=== PATIENT | male | born 1975 | race American Indian/Alaskan Native ===

== ENCOUNTER 2022-06-11 19:28 | Emergency (ER) | payer BC ==
[2022-06-11 19:54] VITALS: BP 138/95; PULSE 94; RESP 16; TEMP 97.6; BMI 25.2
[2022-06-11 20:52] LABS: HEMATOCRIT 44.5 % (35.4-49); HEMOGLOBIN 15.5 G/dL (11.7-16.9); MCH 30.2 pg (25.7-33.7); MCHC 34.9 g/dl (32.0-35.9); MEAN CELL VOLUME 86.8 fl (80-96); PLATELET COUNT 209.8 10^3/uL (134-434); RBC 5.13 10^6/uL (4.00-5.60); WHITE BLOOD COUNT 10.6 10^3/uL (4.0-10.8)
[2022-06-11 20:54] LABS: INR 0.97 (0.83-1.09); PROTHROMBIN TIME (PATIENT) 11.2 SEC (9.7-13.0)
[2022-06-11 20:56] LABS: ACTIVATED PTT 38.4 SECONDS (25.2-36.5)
[2022-06-11 21:00] LABS: ALBUMIN 4.9 g/dl (3.4-5.0); BILIRUBIN,TOTAL 0.6 mg/dl (0.2-1); CALCIUM 9.7 mg/dl (8.5-10); CREATININE 0.9 mg/dl (0.55-1.3); TOT PROT 7.9 g/dl (6.4-8.2)
[2022-06-11 21:15] LABS: PLATELET ESTIMATE ADEQUATE
[2022-06-11 22:20] LABS: N-TERMINAL BNP 32.5 pg/ml (5-125)
== END 2022-06-12 00:18 | disposition home or self-care (01) ==
LOC: FER 19:28
DX: R07.89 Other chest pain (principal); V49.40XA Driver injured in collision with unspecified motor vehicles in traffic accident, initial encounter
CPT/HCPCS: 36415; 71046-TC-FY; 71275-TC; 80053; 83880; 84484; 85027; 85610; 85730; 93005; 99285-25; Q9967